=== PATIENT | male | born 1945 | race Caucasian/White ===

== ENCOUNTER 2016-11-27 12:00 | Emergency (ER) | payer BC ==
[2016-11-27] MEDS ORDERED: FENTANYL 250 MCG/5 ML VIAL ONE ×2 (12:14→17:02)
[2016-11-27] MEDS ORDERED: HYDROmorphone HCL 1 MG/ML SYR ONE ×2 (12:51→12:59)
[2016-11-27] MEDS ORDERED: ONDANSETRON HCL 4 MG/2 ML VIAL ONE (12:52)
[2016-11-27 12:56] LABS: BASOPHILS 0.4 % (0.0-2.0); EOSINOPHILS 1.7 % (0.0-6.0); EOSINOPHILS# 0.1 X 10^3uL (0.0-0.4); HEMATOCRIT 45.4 % (42.0-54.0); HEMOGLOBIN 15.2 g/dL (14.0-18.0); LYMPHOCYTES 11.3 % (20.0-40.0); LYMPHOCYTES# 0.6 X 10^3uL (0.8-3.8); MEAN CELL VOLUME 87.9 fL (80.0-100.0); MEAN CORPUS. HGB CONCENTRATION 33.4 g/dL (32.0-36.0); MEAN CORPUSCULAR HEMOGLOBIN 29.4 pg (29.0-35.0); MEAN PLATELET VOLUME 9.7 fL (7.4-10.4); MONOCYTES 7.7 % (2.0-10.0); MONOCYTES# 0.4 X 10^3uL (0.2-1.0); NEUTROPHILS 78.9 % (54.0-75.0); NEUTROPHILS# 4.1 X 10^3uL (2.6-6.7); PLATELET COUNT 127 X 10^3uL (130-440); RED BLOOD COUNT 5.16 X 10^6uL (4.20-6.10); RED CELL DISTRIBUTION WIDTH 13.3 % (11.5-14.5); WHITE BLOOD COUNT 5.2 X 10^3uL (3.9-10.7)
--- NOTE | 2016-11-27 12:56 | RADIOLOGY REPORT ---
HISTORY: Right hip pain post fall. COMPARISON: None. FINDINGS: 2 views of the shoulder obtained. There is a nondisplaced, mildly comminuted intertrochanteric fract ure of the right femur. There is a longitudinally oriented component through the base of the lesser trochanter. Fragments are nondisplaced. The glenohumeral joint remains in alignment. No dislocation. Visualized portion of the pelvis is intact. No lytic or sclerotic lesion. Pubic symphysis is in ali gnment. IMPRESSION: Comminuted, oblique, nondisplaced intertrochanteric fracture of the right femur. Final Electronic Signature: This report was electronically signed by Kurt Shelby MD on 11/27/2016 12: 53 PM. [facility] /
[2016-11-27 13:02] LABS: BLOOD UREA NITROGEN 18 mg/dL (9-20); CALCIUM 9.2 mg/dL (8.4-10.2); CHLORIDE 105 mmol/L (98-107); CREATININE 0.7 mg/dL (0.7-1.3); EST GLOMERULAR FILTRATION RATE > 60 mL/min; GLUCOSE 158 mg/dL (70-100); POTASSIUM 4.7 mmol/L (3.5-5.1); SODIUM 138 mmol/L (137-145)
[2016-11-27 13:03] LABS: INR 1.1; PARTIAL THROMBOPLASTIN TIME 25 sec (24-38)
--- NOTE | 2016-11-27 13:08 | RADIOLOGY REPORT ---
HISTORY: Recent fall. COMPARISON: Chest x-ray November 13, 2016. FINDINGS: 2 views of the chest obtained. The lungs are clear without focal infiltrates or evidence of pulmonary edema. No effusion or pneumoth orax. The cardiac silhouette is within normal limits for size and the trachea is midline. No acute [place] injury. IMPRESSION: 1. No acute findings. Final Electronic Signature: This report was electronically signed by Placido Silver MD on 11/27/2016 1:05 PM. [facility] /
--- NOTE | 2016-11-27 13:49 | ER PHYSICIAN DOCUMENTATION ---
Physician Documentation [facility] Name:Brandan Shen Age:70 yrs Sex:Male :1945 Arrival Date:11/27/2016 Time:12:00 Bed6 Private MD:Domenico Barroso ED, Tom Disposition: 11/27 16:39 Chart complete. tl1 Disposition: 11/27/16 13:33 Transfer ordered to [facility]. Diagnosis is Intertrochanteric Hip Fracture. - Reason for transfer: Specialty. - Accepting physician is Raymond Diallo. - Condition is Good. - Problem is new. - Symptoms have improved. COBRA Form completed? Yes Transfer - Mode of Transportation Ambulance HPI: 12:15 This 70 yrs old Male presents to ER via EMS with complaints of Hip Pain - R. tl1 12:15 The patient or guardian reports an injury, pain. that occurred outdoors, sustained from tl1 a fall, The patient is not able to ambulate. Patient is not able to bear weight. He slipped on some black ice just [employer], injured his right hip and is now unable to bear weight. He has severe right hip pain, with even minimal movement. No other complaints. Did not hit his head and is not on any blood thinners.. Historical: - Allergies: No known drug Allergies; - Home Meds: 1. Lyrica Oral 2. stomach enzymes 3. insulin 4. Vesicare oral 5. tamsulosin oral 6. Aspirin Oral 7. Creon oral - PMHx: DIABETES - IDDM; HYPERTENSION; cholangiocarcinoma, s/p whipple; - Tetanus: < 10 years. - Ebola Screening: : Patient denies exposure to infectious person. Patient denies travel to an Ebola-affected area in the 21 days before illness onset. . - Immunization history: Pneumococcal vaccine status is unknown. - Social history: Smoking status: Patient states former smoker of tobacco. Patient uses alcohol Patient/guardian denies using marijuana. ROS: 12:31 MS/extremity: Positive for injury or acute deformity, of the right hip. tl1 12:31 All other systems are negative. tl1 Exam: 13:29 Constitutional: This is a well developed, well nourished patient who is awake, alert, tl1 and in no acute distress. Head/Face: Normocephalic, atraumatic. Eyes: Pupils equal round and reactive to light, extra-ocular motions intact. Lids and lashes normal. Conjunctiva and sclera are non-icteric and not injected. Cornea within normal limits. Periorbital areas with no swelling, redness, or edema. 13:29 Neck: Trachea midline, no thyromegaly or masses palpated, and no cervical tl1 lymphadenopathy. Supple, full range of motion without nuchal rigidity, or vertebral point tenderness. No Meningismus. 13:29 Cardiovascular: Rate: normal, Rhythm: regular, Heart sounds: normal. 13:29 Respiratory: the patient does not display signs of respiratory distress, Respirations: normal, Breath sounds: are normal. 13:29 Back: CVA tenderness, is absent, vertebral tenderness, is not appreciated. 13:29 Musculoskeletal/extremity: Extremities: grossly normal except: noted in the right hip: decreased ROM, pain, tenderness, ROM: limited active range of motion, limited passive range of motion, limited active range of motion due to pain, limited passive range of motion due to pain, Circulation is intact in all extremities. Weight bearing: is unable to bear weight. 13:29 Skin: Exam negative for acute changes. 13:29 Neuro: Exam negative for acute changes. Vital Signs: 12:17 BP 125 / 70; Pulse 63; Resp 18; Temp 98.1; Pulse Ox 96% ; Pain 1/10; st 12:45 Pain 9/10; st 12:57 BP 140 / 75; Pulse 60; Pulse Ox 91% ; st 13:03 Pain 4/10; st 13:36 Pain 2/10; st MDM: 12:28 Patient medically screened. tl1 13:00 ED course: Pain well controlled with dilaudid. he was hemodynamically stable. Our OR is tl1 closed for repairs so arrangements were made to transfer him to [facility].. 13:31 Differential diagnosis: hip fracture, bursitis, arthritis, strain. Data reviewed: vital tl1 signs, nurses notes, lab test result(s), CBC, electrolytes, hepatic panel, EKG, radiologic studies, plain films, and as a result, I will *Transfer Patient. Test interpretation: by ED physician or midlevel provider: plain radiologic studies, ECG. Counseling: I had a detailed discussion with the patient and/or guardian regarding: the historical points, exam findings, and any diagnostic results supporting the discharge/admit diagnosis, radiology results, the need for outpatient follow up, the need for further work-up and treatment in the hospital, the need to transfer to another facility. Medication response: The patient's symptoms have improved, Dilaudid. Physician consultation: Raymond Diallo was called at 13:20, was contacted at 13:25, regarding patient's condition, after a discussion of the case, a recommendation for transfer for higher level of care is made. 13:36 ECG:. tl1 11/27 13:05 Order name: PROTIME/INR; Complete Time: 16:41 EDMS 11/27 16:40 Interpretation: Normal: PROTIME 14.4; INR 1.1. tl1 11/27 13:05 Order name: PARTIAL THROMBOPLASTIN TIME; Complete Time: 16:41 EDMS 11/27 16:40 Interpretation: Normal: PARTIAL THROMBOPLASTIN TIME 25. tl1 11/27 13:06 Order name: CBC AUTO DIF, MDIF/RMOR IF IND; Complete Time: 16:41 EDMS 11/27 16:40 Interpretation: WHITE BLOOD COUNT 5.2; HEMOGLOBIN 15.2; HEMATOCRIT 45.4; PLATELET COUNT tl1 127. 11/27 13:06 Order name: BASIC METABOLIC PANEL; Complete Time: 16:41 EDMS 11/27 16:40 Interpretation: SODIUM 138; POTASSIUM 4.7; CHLORIDE 105; CARBON DIOXIDE 23; GLUCOSE tl1 158; BLOOD UREA NITROGEN 18; CREATININE 0.7. 11/27 12:56 Order name: HIP;W/PEL 2-3 [place] [id number]; Complete Time: 16:41 EDMS 11/27 16:41 Interpretation: RIGHT INTERTROCHANTERIC HIP FRACTURE. 1 11/27 13:10 Order name: CHEST; SINGLE VIEW [id number]; Complete Time: 16:41 EDMS 11/27 12:12 Order name: Ice Packs; Complete Time: 12:20 st 11/27 12:39 Order name: EKG - 12 Lead; Complete Time: 13:09 tl1 11/27 13:08 Order name: Oxygen; Complete Time: 13:09 st EC:59 Rate is 54 beats/min. Rhythm is regular, Normal Sinus Rhythm. QRS [place] is Normal. MT tl1 interval is normal at 188 msec. QRS interval is normal at 98 msec. QT interval is normal at 431 msec. No Q waves. T waves are Normal. No ST changes noted. Clinical impression: Normal ECG. Interpreted by me. Reviewed by me. Dispensed Medications: 12:45 Drug: Dilaudid 1 mg; Route: IVP; Site: right wrist; st 13:36 Follow up: Response: Pain is unchanged, physician notified st 12:45 CANCELLED (Duplicate Order): Dilaudid [address] 12:45 CANCELLED (Duplicate Order): Zofran 4 mg IVP once over [address] 12:46 Drug: Zofran 4 mg; Route: IVP; Infused Over: 2 mins; Site: right wrist; st 13:36 Follow up: Response: Nausea is decreased st 12:52 Drug: Dilaudid 1 mg; Route: IVP; Site: right wrist; st 13:36 Follow up: Response: Pain is decreased st Signatures: Missy Guillen RN RN Beto Fontana MD MD tl1
--- NOTE | 2016-11-27 13:49 | ER NURSING DOCUMENTATION ---
Nurse's Notes [facility] Name:Brandan Shen Age:70 yrs Sex:Male :1945 Arrival Date:11/27/2016 Time:12:00 Bed6 Private MD:Domenico Barroso Diagnosis:Intertrochanteric Hip Fracture Presentation: 11/27 12:07 Acuity: MARIA ELENA 3 st 12:09 Presenting complaint: Patient states: pt slipped on the ice and fell on his right side st and now has right hip pain with any movement. Transition of care: Home. 12:09 Method Of Arrival: EMS: 410 st 12:15 Care prior to arrival: IV initiated. gauge and site 20 G right wrist Medication(s) st given: Fentanyl 100MCG. Triage Assessment: 12:14 General: Appears uncomfortable, Behavior is cooperative. Pain: Complains of pain in st right hip Pain currently is 1 out of 10 on a pain scale. 12:16 Cardiovascular: No deficits noted. Respiratory: No deficits noted. GI: No deficits st noted. Reports pt generally has some abd pain post stomach cancer pt has no more pain then usual. Derm: Musculoskeletal: Circulation, motion, and sensation intact Reports pain in right leg and right hip pt is unable to bear weight on the right hip. Historical: - Allergies: No known drug Allergies; - Home Meds: 1. Lyrica Oral 2. stomach enzymes 3. insulin 4. Vesicare oral 5. tamsulosin oral 6. Aspirin Oral 7. Creon oral - PMHx: DIABETES - IDDM; HYPERTENSION; cholangiocarcinoma, s/p whipple; - Tetanus: < 10 years. - Ebola Screening: : Patient denies exposure to infectious person. Patient denies travel to an Ebola-affected area in the 21 days before illness onset. . - Immunization history: Pneumococcal vaccine status is unknown. - Social history: Smoking status: Patient states former smoker of tobacco. Patient uses alcohol Patient/guardian denies using marijuana. Screenin:20 Infectious Disease Risk None. Abuse screen: Denies threats or abuse. Denies injuries st from another. pt feels safe at home. Nutritional screening: No deficits noted. Assessment: 13:18 General: pt last had solid food at 7:30 AM and last had 9:[address] Vital Signs: 12:17 BP 125 / 70; Pulse 63; Resp 18; Temp 98.1; Pulse Ox 96% ; Pain 1/10; st 12:45 Pain 9/10; st 12:57 BP 140 / 75; Pulse 60; Pulse Ox 91% ; st 13:03 Pain 4/10; st 13:36 Pain 2/10; st ED Course: 12:02 Patient arrived in ED. ama 12:02 Domenico Barroso MD is Private Physician. ama 12:07 Missy Guillen RN is Primary Nurse. st 12:[address] 12:20 Valuables Remains with patient Patient has correct armband on for positive st identification. Placed in gown. Bed in low position. Side rails up X2. Pulse Ox - RN Monitoring Only NIBP On - RN Monitoring Only. Ice pack to injury. Warm blanket given. 12:28 Beto Dobson MD is Attending Physician. tl1 12:40 Port Xray Completed. ms 12:46 cxr port completed. ms 12:59 EKG done per protocol. Performed by ED Staff. Shown to ED physician. st 13:03 Oxygen Oxygen administration via nasal cannula @ 2L/min. st Administered Medications: 12:45 Drug: Dilaudid 1 mg; Route: IVP; Site: right wrist; st 13:36 Follow up: Response: Pain is unchanged, physician notified st 12:45 CANCELLED (Duplicate Order): Dilaudid [address] 12:45 CANCELLED (Duplicate Order): Zofran 4 mg IVP once over [address] 12:46 Drug: Zofran 4 mg; Route: IVP; Infused Over: 2 mins; Site: right wrist; st 13:36 Follow up: Response: Nausea is decreased st 12:52 Drug: Dilaudid 1 mg; Route: IVP; Site: right wrist; st 13:36 Follow up: Response: Pain is decreased st Outcome: 13:28 Transferred: Patient will be transferred to: [facility]. Facility st Acceptance Time: November 27, 2016 at 13:28 Patient's face sheet was faxed to accepting facility. Face Sheet included patient's name, address, age, gender, contact information and insurance information. Patient will be transported by: [facility] ground. 13:33 ER care complete, transfer ordered by . tl1 13:45 Transferred: Nurse and Physician Charting and Notes were sent to Accepting Facility. st All tests and/or procedures with results, if applicable, were sent to accepting facility. 13:45 Condition: stable 13:45 Discharge instructions given to patient, Instructed on crutch walking, discharge instructions, need for transfer 13:48 [address] the ED[address] st 13:52 Report given to Monty vaughan Signatures: Missy Guillen RN RN st Strickland, Mary ms Averdick, Andrew, Reg Beto Jenkins MD MD tl1 Mariela Yadav
== END 2016-11-27 13:49 | disposition short-term general hospital (02) ==
LOC: ER 12:00
DX: S72.144A Nondisplaced intertrochanteric fracture of right femur, initial encounter for closed fracture (principal); W00.0XXA Fall on same level due to ice and snow, initial encounter; Y92.89 Other specified places as the place of occurrence of the external cause; Y93.01 Activity, walking, marching and hiking; E10.9 Type 1 diabetes mellitus without complications; I10 Essential (primary) hypertension; Z79.82 Long term (current) use of aspirin; Z79.899 Other long term (current) drug therapy
CPT/HCPCS: 71010; 80048; 85025; 85610; 85730; 93005; 96374; 96375; 99285; A0425; A0427; J1170; J2405